=== PATIENT | female | born 1965 | race Caucasian/White ===

== ENCOUNTER 2025-04-28 10:07 | Emergency (ER) | payer BC ==
[~2025-04-28] VITALS: Ht 165.1 cm; Wt 65.2 kg
[~2025-04-28 10:07] MED LIST: ALEVE220 MG PO; CEPHALEXIN500 MG PO; CIPRO500 MG PO; DOXYCYCLINE HY100 MG PO; FLEXERIL10 MG PO; HYDROCODON-ACE1 EAC8 PO; IBUPROFEN400 MG PO; KEFLEX500 MG PO; NAPROSYN375 MG PO; NORCO 5-325 TA1 EACH PO; VICODIN 5-5001 EACH PO; ZOFRAN ODT4 MG PO
[2025-04-28] MEDS ORDERED: DULOXETINE HCL20 MG PO (10:24)
[2025-04-28] MEDS ORDERED: BUPRENORPHINE HC8 MG (10:24)
[2025-04-28] MEDS ORDERED: BUSPIRONE HCL10 MG PO (10:24)
[2025-04-28] MEDS ORDERED: SODIUM CHLORIDE 0.9% 1,000 ML IV ONE (11:00)
[2025-04-28 11:28] LABS: BLOOD/HGB, URINE NEGATIVE (Negative); KETONE, URINE SMALL (Negative); LEUK ESTERASE, URINE NEGATIVE (negative); NITRITE, URINE NEGATIVE (negative)
[2025-04-28] MEDS ORDERED: ONDANSETRON 4 MG TAB ODT SL ONE (11:45)
[2025-04-28] MEDS ORDERED: ONDANSETRON ODT8 MG PO (11:57)
[2025-04-28 12:23] VITALS: BP 140/103
== END 2025-04-28 12:21 | disposition home or self-care (01) ==
LOC: ED 10:07
PROVIDERS: Emergency Medicine
DX: K29.00 Acute gastritis without bleeding (principal); F17.200 Nicotine dependence, unspecified, uncomplicated; Z88.0 Allergy status to penicillin; Z88.5 Allergy status to narcotic agent; Z88.8 Allergy status to other drugs, medicaments and biological substances; Z79.899 Other long term (current) drug therapy
CPT/HCPCS: 80053; 81003; 85025; 99284; A9270